=== PATIENT | male | born 1940 | race Caucasian/White ===

== ENCOUNTER → 2016-09-15 | Outpatient (CLI) | payer MEDICARE ==
[~2016-09-15] MED LIST: ASPI-496 PO
== END | disposition home or self-care (01) ==
LOC: CFH 10:55
PROVIDERS: ATTEND Physician Assistant
DX: M17.11 Unilateral primary osteoarthritis, right knee (principal); M25.461 Effusion, right knee; S83.141A Lateral subluxation of proximal end of tibia, right knee, initial encounter; X58.XXXA Exposure to other specified factors, initial encounter; Y93.89 Activity, other specified; Y92.89 Other specified places as the place of occurrence of the external cause; Y99.8 Other external cause status

== ENCOUNTER → 2017-07-20 | Outpatient (CLI) | payer MEDICARE ==
[~2017-07-20] MED LIST changes: +OMNIPAQUE 350 MG/ML, 100ML BOTTLE ONE
== END | disposition home or self-care (01) ==
LOC: CFH 09:06
PROVIDERS: ATTEND Urology
DX: C61 Malignant neoplasm of prostate (principal); R59.9 Enlarged lymph nodes, unspecified
CPT/HCPCS: 72193; 78306; 82565; A9503; Q9967

== ENCOUNTER → 2018-05-05 | Outpatient (CLI) | payer MEDICARE | END | disposition home or self-care (01) | LOC: PETCFH 07:59 | PROVIDERS: ATTEND Urology | DX: R59.0 Localized enlarged lymph nodes (principal); C77.5 Secondary and unspecified malignant neoplasm of intrapelvic lymph nodes; C61 Malignant neoplasm of prostate; N52.9 Male erectile dysfunction, unspecified; E29.1 Testicular hypofunction; R97.20 Elevated prostate specific antigen [PSA] | CPT/HCPCS: 71260; 74177; 78306; 82565; A9503; Q9967 ==

== ENCOUNTER → 2018-05-15 | Outpatient (CLI) | payer MEDICARE ==
[~2018-05-15] MED LIST changes: -OMNIPAQUE 350 MG/ML, 100ML BOTTLE ONE
== END | disposition home or self-care (01) ==
LOC: CFH 10:37
PROVIDERS: ATTEND Urology
DX: Z13.820 Encounter for screening for osteoporosis (principal); M89.9 Disorder of bone, unspecified
CPT/HCPCS: 77080

== ENCOUNTER → 2019-09-28 | Outpatient (CLI) | payer MEDICARE ==
[~2019-09-28] MED LIST changes: +OMNIPAQUE 350 MG/ML, 100ML BOTTLE ONE
== END | disposition home or self-care (01) ==
LOC: RAD 10:13
PROVIDERS: ATTEND Physician Assistant
DX: C61 Malignant neoplasm of prostate (principal); R59.0 Localized enlarged lymph nodes
CPT/HCPCS: 74177; 78306; A9503; Q9967

== ENCOUNTER → 2020-02-14 | Outpatient (CLI) | payer MEDICARE ==
[~2020-02-14] MED LIST changes: +ACET325T26 PO; +AMLO10TA8 PO; +CHOL20008 PO; +LEVO88TA4 PO; +LOSA1TAB25 PO; -OMNIPAQUE 350 MG/ML, 100ML BOTTLE ONE; +OXYC-302 PO; +PRAV20TA2 PO
== END | disposition home or self-care (01) ==
LOC: ROC 08:04
PROVIDERS: ATTEND Radiology Radiation Oncology
DX: C79.51 Secondary malignant neoplasm of bone (principal); C61 Malignant neoplasm of prostate; Z79.899 Other long term (current) drug therapy
CPT/HCPCS: 99213; G0463

== ENCOUNTER 2020-02-15 06:42 | Day surgery (SDC) | payer MEDICARE ==
[~2020-02-15] VITALS: Ht 175.3 cm; Wt 93.6 kg
[~2020-02-15 06:42] MED LIST changes: -ACET325T26 PO; -AMLO10TA8 PO; -CHOL20008 PO; -LEVO88TA4 PO; -LOSA1TAB25 PO; -OXYC-302 PO; -PRAV20TA2 PO
[2020-02-15 07:45] VITALS: BP 168/91
[2020-02-15] MEDS ORDERED: FENTANYL PF 100 MCG/2ML ONE (08:50)
[2020-02-15] MEDS ORDERED: MIDAZOLAM 1 MG/ML, 5ML ONE (08:50)
[2020-02-16] MEDS ORDERED: PRAV20TA2 PO (10:57)
[2020-02-16] MEDS ORDERED: AMLO10TA8 PO (10:57)
[2020-02-16] MEDS ORDERED: LOSA1TAB25 PO (10:57)
[2020-02-16] MEDS ORDERED: CHOL20008 PO (10:57)
[2020-02-16] MEDS ORDERED: LEVO88TA4 PO (10:57)
[2020-02-16] MEDS ORDERED: ACET325T26 PO (11:27)
== END 2020-02-15 10:10 | disposition home or self-care (01) ==
LOC: OUT 06:42
PROVIDERS: ATTEND Internal Medicine Hematology & Oncology
DX: R59.0 Localized enlarged lymph nodes (principal); C61 Malignant neoplasm of prostate; C77.2 Secondary and unspecified malignant neoplasm of intra-abdominal lymph nodes; Z79.899 Other long term (current) drug therapy; Z80.42 Family history of malignant neoplasm of prostate
CPT/HCPCS: 49180; 77012; 88305; 88341; 88342; 99156; 99157; J2250; J3010

== ENCOUNTER 2020-02-15 12:46 | Inpatient (IN) | payer MEDICARE ==
[~2020-02-15] VITALS: Ht 175.3 cm; Wt 100.1 kg
[2020-02-15 13:30] LABS: BASOPHILS % (AUTO) 0 % (0-1); EOSINOPHILS % (AUTO) 0 % (1-7); LYMPHOCYTES % (AUTO) 14 % (22-44); MEAN CORPUSCULAR HEMOGLOBIN 30.2 pg (27.5-34.5); MEAN PLATELET VOLUME 8.7 fL (7.4-10.4); MONOCYTES % (AUTO) 6 % (2-9); NEUTROPHILS % (AUTO) 79 % (42-75); PLATELET COUNT 159 x10^3/uL (130-400); RED BLOOD COUNT 4.61 x10^6/uL (4.38-5.82); RED CELL DISTRIBUTION WIDTH 13.3 % (9.4-14.8)
[2020-02-15] MEDS ORDERED: SODIUM CHLORIDE FLUSH 10ML SYR IVF ONE (13:30)
[2020-02-15 13:37] LABS: MD NO
[2020-02-15 13:38] LABS: ALBUMIN 3.6 g/dL (3.4-5.0); ANION GAP 12 mmol/L (5-15); CALCIUM 9.2 mg/dL (8.5-10.1); CHLORIDE 111 mmol/L (98-107); CREATININE 1.12 mg/dL (0.7-1.3)
[2020-02-15] MEDS ORDERED: HYDROmorphone 1 MG/ML, 1ML INJ ONE (13:44)
[2020-02-15] MEDS: HYDROmorphone 2 MG/ML, 1ML IVPush PRN ×2 (13:53→14:52)
[2020-02-15] MEDS ORDERED: OMNIPAQUE 350 MG/ML, 100ML BOTTLE ONE (14:22)
--- NOTE | 2020-02-15 14:54 | NUR ---
PT RESTING IN BED WITH PT AT PT SIDE, PT REQUESTED PAIN MEDS, PT MEDICATED PER EMAR. PT VSS
[2020-02-15 14:56] LABS: INTERNATIONAL NORMALIZED RATIO 0.99 (0.93-1.1); PROTHROMBIN TIME 10.5 Seconds (9.6-11.5)
[2020-02-15] MEDS ORDERED: LIDOCAINE 1%, 10ML ONE (15:00)
[2020-02-15] MEDS ORDERED: NALOXONE 1 MG/ML, 2ML ONE (15:03)
[2020-02-15] MEDS ORDERED: FLUMAZENIL 0.1 MG/1 ML, 5ML ONE (15:03)
[2020-02-15] MEDS ORDERED: FENTANYL PF 100 MCG/2ML ONE (15:03)
[2020-02-15] MEDS ORDERED: MIDAZOLAM 1 MG/ML, 5ML ONE (15:03)
--- NOTE | 2020-02-15 15:24 | NUR ---
PT LEFT WITH IR
--- NOTE | 2020-02-15 15:39 | NUR ---
Jaxon ovalle in [facility] - 02/15/20 at 1605 by MARIBEL PT BACK FROM IR
--- NOTE | 2020-02-15 15:45 | NUR ---
pt aware of urine that is needed, pt denied the urge to go at this time
--- NOTE | 2020-02-15 16:59 | NUR ---
IR CALLED AND "ARE RETURNING PT TO ED ROOM 27, PT RECIEVED 4MG VERSED AND 100MCG FENTYNAL WELL 4 EMBOLI COILS IN THE LEFT L2 ARTERY WHERE IR ACCESSED THREW RIGHT GROIN AREA".
[2020-02-15] MEDS ORDERED: LABETALOL 5MG/ML, 20ML IVPush PRN (17:30)
[2020-02-15] MEDS ORDERED: ACETAMINOPHEN 325 MG TABLET PO PRN (17:30)
[2020-02-15] MEDS: SODIUM CHLORIDE 0.9% 1,000 ML IV SCH (17:30)
[2020-02-15] MEDS ORDERED: hydrALAzine 20 MG/ML, 1ML IVPush PRN (17:30)
[2020-02-15] MEDS ORDERED: PROMETHAZINE 25 MG/ML, 1ML IM PRN (17:30)
--- NOTE | 2020-02-15 17:30 | NUR ---
PT PEDAL PULSES X2 INTACT WITH NO BLEDDING AT FEMRAL INSERTIION SITE,PT FLAT IN SUPINE POSITION
--- NOTE | 2020-02-15 17:32 | NUR ---
PT TO LAY FLAT FOR 2HRS WITH PEDAL PULSE CHECKES AND BLEEDING EBERY 30 MIN FOR 2HRS PER KATIE NICHOLSON
--- NOTE | 2020-02-15 18:00 | NUR ---
PT PEDAL PULSES X2 INTACT WITH NO BLEDDING AT FEMRAL INSERTIION SITE,PT FLAT IN SUPINE POSITION
--- NOTE | 2020-02-15 18:31 | NUR ---
PT PEDAL PULSES X2 INTACT WITH NO BLEDDING AT FEMRAL INSERTIION SITE,PT FLAT IN SUPINE POSITION
--- NOTE | 2020-02-15 19:00 | NUR ---
PT PEDAL PULSES X2 INTACT WITH NO BLEDDING AT FEMRAL INSERTIION SITE,PT FLAT IN SUPINE POSITION
--- NOTE | 2020-02-15 19:41 | NUR ---
PT PEDAL PULSES X2 INTACT WITH NO BLEDDING AT FEMRAL INSERTIION SITE,PT FLAT IN SUPINE POSITION
--- NOTE | 2020-02-15 20:21 | NUR ---
PT RESTING IN HOSPITAL FLOOR BED, PT DENIED ANY WATS OR NEEDS AT THIS TIME. PT VSS
--- NOTE | 2020-02-16 01:06 | NUR ---
PT RESTING IN BED, VSS, PT HAS NO WANTS AND NEEDS AT THIS TIME
--- NOTE | 2020-02-16 03:43 | NUR ---
PT RESTING IN HOSPITAL BED, VSS, PT HAS NO WANTS OR NEEDS AT THIS TIME
--- NOTE | 2020-02-16 04:57 | NUR ---
REPORT FROM GIRMA ONTIVEROS
--- NOTE | 2020-02-16 05:30 | NUR ---
WATER PROVIDED PER PT REQUEST.
[2020-02-16 05:57] LABS: ALBUMIN 3.1 g/dL (3.4-5.0); ANION GAP 6 mmol/L (5-15); CALCIUM 8.8 mg/dL (8.5-10.1); CHLORIDE 112 mmol/L (98-107)
[2020-02-16 06:00] LABS: ALANINE AMINOTRANSFERASE 20 U/L (12-78); ALKALINE PHOSPHATASE 73 U/L (45-117); BILIRUBIN,TOTAL 0.9 mg/dL (0.2-1.0); CREATININE 0.97 mg/dL (0.7-1.3)
--- NOTE | 2020-02-16 07:00 | NUR ---
SBAR HAND-OFF REPORT RECEIVED FROM GIRMA SCHREIBER. ASSUMING CARE OF PATIENT.
[2020-02-16] MEDS ORDERED: POTASSIUM CHLORIDE 20 MEQ TAB.ER.PRT ONE (08:34)
--- NOTE | 2020-02-16 09:20 | NUR ---
BREAKFAST SERVED TO PATIENT. VS UPDATED AND WNL.
[2020-02-16] MEDS ORDERED: ONDANSETRON 2MG/ML, 2ML ONE ×2 (09:23→17:04)
[2020-02-16] MEDS: ONDANSETRON 2MG/ML, 2ML IVPush PRN ×2 (09:26→17:05)
[2020-02-16] MEDS: POTASSIUM CHLORIDE 10 MEQ TABLET.ER PO SCH (09:27)
[2020-02-16] MEDS: SODIUM CHLORIDE 0.9% 1,000 ML IV SCH ×2 (09:44→18:00)
[2020-02-16] MEDS ORDERED: AMLO10TA8 PO (10:57)
[2020-02-16] MEDS ORDERED: LOSA1TAB25 PO (10:57)
[2020-02-16] MEDS ORDERED: PRAV20TA2 PO (10:57)
[2020-02-16] MEDS ORDERED: CHOL20008 PO (10:57)
[2020-02-16] MEDS ORDERED: LEVO88TA4 PO (10:57)
--- NOTE | 2020-02-16 11:22 | NUR ---
PT AMBULATED ED HALLWAY'S >500 FT. RA SAT 95%. PT SLIGHTLY SOB, PULSE 110. PT STATES HE FEELS OK TO GO HOME. HE WOULD LIKE SOMETHING FOR NAUSEA AND PAIN. DR GARCIA UPDATED.
[2020-02-16] MEDS ORDERED: ACET325T26 PO (11:27)
[2020-02-16] MEDS ORDERED: HYDROcodone/APAP 5/325 TABLET ONE (11:41)
[2020-02-16] MEDS: HYDROcodone/APAP 5/325 TABLET PO PRN ×2 (11:42→23:34)
--- NOTE | 2020-02-16 11:52 | NUR ---
PT'S RA SAT 85-89% AT REST. DR GARCIA NOTIFIED. HOLD DC. WILL REASSESS IN 3 HOURS.
--- NOTE | 2020-02-16 11:57 | NUR ---
PT EDUCATED WITH INCENTIVE SPIROMETER. PT DEMONSTRATES PROPER TECHNIQUE.
[2020-02-16 12:46] VITALS: BP 131/81
--- NOTE | 2020-02-16 13:57 | NUR ---
PT AMBULATED TO BR SBA. PT FEELING SOB, DIZZY WHEN BACK TO ROOM. RA SAT 92%. 02 2L PLACED AND PT ASSISTED BTB, VSS. PROVIDER NOTIFIED.
[2020-02-16 14:20] LABS: MICROSCOPIC INDICATED
[2020-02-16] MEDS ORDERED: MORPHINE SULFATE 4 MG/ML, 1ML ONE (17:04)
[2020-02-16] MEDS: morphine SULFATE 10 MG/ML, 1ML IVPush PRN (17:05)
[2020-02-16 18:08] VITALS: BP 131/81
[2020-02-16 19:52] VITALS: BP 138/80
[2020-02-17 01:24] VITALS: BP 123/74
[2020-02-17] MEDS: morphine SULFATE 10 MG/ML, 1ML IVPush PRN ×3 (05:45→17:57)
[2020-02-17] MEDS: SODIUM CHLORIDE 0.9% 1,000 ML IV SCH (07:00)
[2020-02-17 07:44] VITALS: BP 120/74
[2020-02-17] MEDS: POTASSIUM CHLORIDE 10 MEQ TABLET.ER PO SCH (07:59)
[2020-02-17 12:34] VITALS: BP 120/59
[2020-02-17 19:00] VITALS: BP 87/53
[2020-02-17 19:23] VITALS: BP 118/77
[2020-02-18 02:10] VITALS: BP 98/59
[2020-02-18] MEDS: HYDROcodone/APAP 5/325 TABLET PO PRN ×2 (05:18→13:10)
[2020-02-18 07:25] VITALS: BP 99/75
[2020-02-18 14:10] VITALS: BP 101/60
[2020-02-18 20:13] VITALS: BP 124/73
[2020-02-19 00:20] VITALS: BP 131/60
[2020-02-19 07:15] VITALS: BP 112/64
[2020-02-19] MEDS ORDERED: OXYC-302 PO (12:15)
== END 2020-02-19 12:00 | disposition home health service (06) | DRG 909 ==
LOC: ED 13:19 → INTOOBSV 15:30 → EDIP 15:30 → OBSVTOIN 15:30 → 4NE 02-16 17:43 → DCLOUNGE 02-19 11:50
PROVIDERS: ADMIT Internal Medicine; ATTEND Family Medicine
PROC: 04L03DZ Occlusion of Abdominal Aorta with Intraluminal Device, Percutaneous Approach (ICD-10-PCS; principal; 2020-02-16)
PROC: B4191ZZ Fluoroscopy of Lumbar Arteries using Low Osmolar Contrast (ICD-10-PCS; 2020-02-16)
DX: M96.831 Postprocedural hemorrhage of a musculoskeletal structure following other procedure (principal); C61 Malignant neoplasm of prostate; D64.9 Anemia, unspecified; Y84.8 Other medical procedures as the cause of abnormal reaction of the patient, or of later complication, without mention of misadventure at the time of the procedure; Y92.9 Unspecified place or not applicable; E87.6 Hypokalemia; M54.5 Low back pain; R73.9 Hyperglycemia, unspecified; I10 Essential (primary) hypertension; Z80.42 Family history of malignant neoplasm of prostate; Z85.46 Personal history of malignant neoplasm of prostate; Y93.89 Activity, other specified; Y92.89 Other specified places as the place of occurrence of the external cause; Y99.8 Other external cause status
CPT/HCPCS: 36415; 37244; 74177; 80048; 80053; 81001; 82040; 83036; 85014; 85018; 85025; 85610; 86850; 86900; 87040; 93005; 96374; 96376; 99156; 99157; 99291; G0378; J1170; J2250; J2405; J3010; Q9967; C1751; C1760; C1769; C1894; J2270; J2310; J7030

== ENCOUNTER → 2020-03-28 | Outpatient (CLI) | payer MEDICARE ==
[~2020-03-28] MED LIST changes: +ACET325T26 PO; +AMLO-211 PO; +CHOL20008 PO; +LEVO88TA4 PO; +LOSA1TAB25 PO; +OXYC-302 PO; +PRAV20TA2 PO
== END | disposition home or self-care (01) ==
LOC: ROC 07:49
PROVIDERS: ATTEND Radiology Radiation Oncology
DX: C79.51 Secondary malignant neoplasm of bone (principal); I10 Essential (primary) hypertension; Z85.46 Personal history of malignant neoplasm of prostate; Z79.899 Other long term (current) drug therapy; Z85.89 Personal history of malignant neoplasm of other organs and systems
CPT/HCPCS: 99212; G0463

== ENCOUNTER 2020-09-15 13:57 | Outpatient (CLI) | payer MEDICARE ==
[~2020-09-15 13:57] MED LIST changes: -OMNIPAQUE 350 MG/ML, 100ML BOTTLE ONE
== END 2020-09-15 23:59 | disposition home or self-care (01) ==
LOC: RAD 13:57
PROVIDERS: ATTEND Internal Medicine Hematology & Oncology
DX: Z02.9 Encounter for administrative examinations, unspecified (principal)

== ENCOUNTER → 2020-09-15 | Outpatient (CLI) | payer MEDICARE ==
[~2020-09-15] MED LIST changes: +OMNIPAQUE 350 MG/ML, 100ML BOTTLE ONE; -OXYC-302 PO; +OXYC1TAB14 PO
[2020-09-15 12:27] LABS: CREATININE 1.06 mg/dL (0.7-1.3)
== END | disposition home or self-care (01) ==
LOC: RAD 11:07
PROVIDERS: ATTEND Urology
DX: C61 Malignant neoplasm of prostate (principal); R59.0 Localized enlarged lymph nodes
CPT/HCPCS: 36415; 71260; 74177; 78306; 82565; A9503; Q9967